=== PATIENT | male | born 1940 | race Caucasian/White ===

== ENCOUNTER 2018-01-26 06:50 | Day surgery (SDC) | payer MEDICARE, BC ==
[~2018-01-26] VITALS: Ht 167.6 cm; Wt 55.3 kg
[2018-01-26 07:37] VITALS: BP 127/56; PULSE 86; TEMP 97.1
[2018-01-26] MEDS ORDERED: FLOMAX 0.40.4 MG/CAP PO (07:54)
[2018-01-26] MEDS ORDERED: AVODART 0.5MG0.5 MG PO (07:54)
[2018-01-26 10:09] VITALS: TEMP 97.6
[2018-01-26 10:25] VITALS: BP 97/49; PULSE 78
[2018-01-26 10:55] VITALS: BP 118/68; PULSE 81
[2018-01-26 11:10] VITALS: BP 113/65; PULSE 97
== END 2018-01-26 11:47 | disposition home or self-care (01) ==
LOC: SDCO 06:50
DX: N20.0 Calculus of kidney (principal); Z85.828 Personal history of other malignant neoplasm of skin; J44.9 Chronic obstructive pulmonary disease, unspecified; F17.210 Nicotine dependence, cigarettes, uncomplicated; Z79.899 Other long term (current) drug therapy; R35.1 Nocturia; Z80.9 Family history of malignant neoplasm, unspecified
CPT/HCPCS: C1769; J0690; J1100; J1885; J2405; J2704; J2765; J3010; J7120; Q9967